=== PATIENT | female | born 1990 | race African-American/Black ===

== ENCOUNTER 2018-01-07 18:23 | Emergency (ER) | payer MEDICAID ==
[~2018-01-07] VITALS: Ht 165.1 cm; Wt 55.0 kg
[2018-01-07 22:14] VITALS: BP 126/87
== END 2018-01-08 03:54 | disposition left against medical advice (07) ==
LOC: ER 18:23
DX: K08.89 Other specified disorders of teeth and supporting structures (principal)
CPT/HCPCS: 99281